=== PATIENT | male | born 1960 ===

== ENCOUNTER 2023-03-31 06:00 | Day surgery (SDC) | payer OTHER | END 2023-03-31 13:25 | disposition home or self-care (01) | LOC: CIR.AMB 06:00 | PROVIDERS: ATTEND Otolaryngology Otology & Neurotology | DX: H80.91 Unspecified otosclerosis, right ear (principal); H90.11 Conductive hearing loss, unilateral, right ear, with unrestricted hearing on the contralateral side; Z20.822 Contact with and (suspected) exposure to COVID-19; I10 Essential (primary) hypertension; E78.5 Hyperlipidemia, unspecified; G47.30 Sleep apnea, unspecified ==